=== PATIENT | male | born 1990 | race Caucasian/White ===

== ENCOUNTER 2021-10-30 17:55 | Emergency (ER) | payer MEDICAID, OTHER ==
[~2021-10-30] VITALS: Ht 177.8 cm; Wt 79.4 kg
[2021-10-30] MEDS ORDERED: AZITHROMYCIN 250 MG TAB PO ONE (21:30)
[2021-10-30] MEDS ORDERED: cefTRIAXone W LIDOCAINE 500 MG IM IM ONE (21:30)
[2021-10-30] MEDS ORDERED: cefTRIAXone SOD 500 MG VL ONE (21:56)
[2021-10-30 22:14] VITALS: BP 127/84
== END 2021-10-30 22:20 | disposition home or self-care (01) ==
LOC: ER 17:55
DX: R21 Rash and other nonspecific skin eruption (principal); A64 Unspecified sexually transmitted disease; K21.9 Gastro-esophageal reflux disease without esophagitis
CPT/HCPCS: 96372; 99283; J0696

== ENCOUNTER 2021-12-24 21:34 | Emergency (ER) | payer MEDICAID ==
[~2021-12-24] VITALS: Ht 175.3 cm; Wt 71.4 kg
[2021-12-24 22:40] VITALS: BP 114/82
[2021-12-26 08:06] LABS: RPR Non Reactive (Non Reactive)
== END 2021-12-25 01:15 | disposition left against medical advice (07) ==
LOC: ER 21:34
DX: R21 Rash and other nonspecific skin eruption (principal); A64 Unspecified sexually transmitted disease
CPT/HCPCS: 86592; 86703